=== PATIENT | female | born 1950 | race Caucasian/White ===

== ENCOUNTER 2016-05-06 09:56 | Inpatient (IN) | payer MEDICARE, OTHER ==
--- NOTE | ~2016-05-06 | DS ---
Discharge Summary [id number] [place]. [address] NAME: BRYANT VILLALPANDO : 54 STATUS : ADM IN PAT#: [id number] AGE: 65 ADM/REG DATE : 05/06/16 MR#: [id number] REPORT SERV DATE: 05/11/16 DICTATED BY: GINNA DORANTES DATE: 05/11/16 REPORT STATUS : Draft TRANSCRIBED BY: MODL DATE: 05/11/16 ADMISSION DATE: 05/06/2016 DISCHARGE DATE: 05/11/2016 DIAGNOSES ON ADMISSION: 1. 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 2. Hepatic encephalopathy. 3. History of spontaneous bacterial peritonitis in the past. 4. Abnormal liver enzymes, elevated bilirubin and transaminases secondary to end-stage liver disease. 5. Decreased level of consciousness. DIAGNOSES ON DISCHARGE: 1. End-stage liver disease seen by resource engineer, Dr. Ricardo Lisa. The patient refused liver transplantation. Hospice was recommended per Dr. Ricardo Lisa. 2. Hepatic encephalopathy secondary to end-stage liver disease, improved on lactulose, but patient repeatedly refused lactulose. 3. Status post paracenteses for ascites secondary to end-stage liver disease. 4. Severe coagulopathy secondary to end-stage liver disease. 5. No evidence of spontaneous bacterial peritonitis. 6. 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 CONSULTANTS ON THE CASE: Ricardo Lisa, resource engineer. HISTORY OF PRESENT ILLNESS: Per dictation of Yin Fischer on 05/06/2016. The patient is a very pleasant 65-year-old female, presented with altered mental status, decreased level of consciousness, and nonresponsiveness. She was started on lactulose. Her level of responsiveness improved. The consciousness came back to baseline. She had ascites and paracentesis was ordered, and she had 2 L of fluid removed. The cultures did not show any evidence of peritonitis. The patient was seen by resource engineer, Dr. Ricardo Lisa. The patient repeatedly refused liver transplantation. Her daughter was also at the bedside supporting her. Dr. Lisa recommended the patient to be discharged to hospice. We were waiting for hospice, and she was approved for hospice on the same day, but she needed placement and we were waiting for placement until she got approved to [facility] placement, but for the last three days, the patient was complaining of pain all over and she was requesting pain medications, so she was given low-dose morphine and her pain is currently controlled as well as the patient repeatedly refused lactulose. She understood that she may become unresponsive again, but she and her daughter both do not want her to take lactulose because patient does not like to have constant bowel movements and she does not want to take lactulose. She wants to be comfortable and it was explained to patient and her daughter that she may very soon without taking lactulose, and she may become completely unresponsive. She understands this and daughter as well understands, so she is approved to go to [facility] under hospice. Everything was discussed with hospice nurse. The patient will be discharged today. Discharge Summary [address] [place]. [address] NAME: BRYANT VILLALPANDO : 54 STATUS : ADM IN PAT#: [id number] AGE: 65 ADM/REG DATE : 05/06/16 MR#: [id number] REPORT SERV DATE: 05/11/16 DICTATED BY: GINNA DORANTES DATE: 05/11/16 REPORT STATUS : Draft TRANSCRIBED BY: CHRISTIANO DATE: 05/11/16 /CHRISTIANO Ginna Dorantes M.D. / [id number] CC: Yara Earl M.D.
--- NOTE | ~2016-05-06 | CN ---
Consultation Report [facility] [address] [place]. [address] NAME: BRYANT VILLALPANDO : 54 STATUS : ADM IN PAT#: [id number] AGE: 65 ADM/REG DATE : 05/06/16 MR#: [id number] REPORT SERV DATE: 05/08/16 DICTATED BY: DATE: REPORT STATUS : Draft TRANSCRIBED BY: MODL DATE: 05/08/16 NEUROLOGY CONSULTATION DATE OF CONSULTATION: REASON FOR CONSULT: Seizure. HISTORY OF PRESENT ILLNESS: This is an 88-year-old female with a history of nonalcoholic steatohepatitis, presented to [facility] secondary to encephalopathy. The patient on May 07, 2016, started developing jerking movement, especially worse with movement, as well as activity with the patient's symptom appeared to be improved with Ativan. The patient was noted to have no previous seizure history. The patient does have a history of cirrhosis with multiple ascites and refused the liver transplantation. As a result, the patient and family member have been talking with the hospice regarding hospice placement. The patient's family members wishes the patient to remain comfortable as the patient's main goal. No other complaints of fevers or other recent illness. PAST MEDICAL HISTORY: 1. Significant for cirrhosis secondary to nausea. 2. Hepatic encephalopathy. 3. History of bacterial peritonitis. 4. Diabetes. 5. Hypothyroidism. 6. Ascites with multiple paracentesis. SOCIAL HISTORY: Denies tobacco, alcohol, or recreational drug usage per records. FAMILY HISTORY: No family history of liver disease or reports of seizure noted. REVIEW OF SYSTEMS: Unable to be obtained secondary to the patient's mental status, but per the patient's family, was otherwise negative. MEDICATIONS: The patient's hospital medications consist of IV Ativan, as well as IV Keppra, lactulose, NovoLog, Protonix, and Rocephin. PHYSICAL EXAMINATION: VITAL SIGNS: At the time of evaluation, the patient's vital signs overnight T-max of 99.1, heart rates of 84-100, respiration of 14-20, and blood pressure of 132-164/60-82. GENERAL: The patient is well developed, well nourished, in no acute distress. The patient was able to follow some simple commands at the time of evaluation. She was noted to have some movement of bilateral upper and lower extremity at the time of evaluation with the patient noted to have distended abdomen, myoclonus jerk especially associated with movement, as well as stimulation, and was seen during the evaluation. Consultation Report [address] [place] [address] NAME: BRYANT VILLALPANDO : 54 STATUS : ADM IN PAT#: [id number] AGE: 65 ADM/REG DATE : 05/06/16 MR#: [id number] REPORT SERV DATE: 05/08/16 DICTATED BY: DATE: REPORT STATUS : Draft TRANSCRIBED BY: MODL DATE: 05/08/16 LABORATORY STUDIES: Demonstrated white blood cell count was 6.7, hemoglobin of 11.7, hematocrit of 33.9, and platelet count of 139. Chemistry panel: Sodium 138, potassium 4.0, chloride of 108, bicarb of 16, BUN of 34, creatinine 1.65, glucose 146, and calcium of 8.7. Serum ammonia level on May 07, 2016 was 33. IMPRESSION: 1. Myoclonus with the symptoms started on May 07, 2016, stable symptom with the patient's symptoms appear improved with Ativan. Discussed with the patient's family regarding the main goal of therapy, which is to keep the patient comfortable. The family is agreeable. If patient is drowsy or sedated secondary to medication side effect, as a result, we are recommending changing Keppra to 750 mg p.o. b.i.d. We will change Ativan to 1 mg IV q.6 hours as needed for jerking. 2. We will also start Klonopin 1 mg p.o. t.i.d. We will adjust doses as needed for jerking episode. RECOMMENDATIONS: 1. Ativan 1 mg IV q.6 hours as needed for myoclonus. 2. Change Keppra to 750 mg p.o. b.i.d. 3. We will start Klonopin 1 mg p.o. t.i.d. 4. We will titrate medication based on clinical response. [facility]/CHRISTIANO Jabari Gardner MD / [id number] CC: Yara Earl MD
--- NOTE | ~2016-05-06 | CN ---
Consultation Report [facility] [address] [place]. [address] NAME: BRYANT LANDA : 54 STATUS : ADM IN PAT#: [id number] AGE: 65 ADM/REG DATE : 05/06/16 MR#: [id number] REPORT SERV DATE: 05/07/16 DICTATED BY: RICARDO LISA DATE: 05/07/16 REPORT STATUS : Draft TRANSCRIBED BY: MODL DATE: 05/07/16 CONSULTATION DATE OF CONSULTATION: 05/07/2016 REASON: Cirrhosis of liver and complication. HISTORY: Ms. Landa is a 65-year-old pleasant lady from 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 She has been living alone there. She was offered liver transplant evaluation, but declined for personal reasons. The patient does not want liver transplant. Family brought her in [place] since daughter thinks that she cannot live alone, she is the only family member she has. She was in the hospital at the end of January for encephalopathy and ascites. Had the paracentesis done, treated with suspected bacterial peritonitis. Fluid analysis did not show any infection. WBC count was less than 200 at that time. She has been on lactulose, Xifaxan, and diuretics at home. Also at same time, she is on Ambien for sleep. Yesterday morning, daughter found her confused, she threw up a couple of times, was not able to talk to her, brought her to the hospital. In the ER, her ammonia level was 160. Lab work showed worsening liver functions with MELD score of 24. Since admission, she has received lactulose about 3 or 4 doses, had multiple bowel movements. The patient's mental status has improved. She is more alert, able to communicate and participate in the conversation this morning in the presence of her daughter. She has pain in the abdomen. Denies fever. Daughter is worried about management and prognosis and they are aware of her condition. They have been told by her senior technical recruiter that there is not much option left at this point, only option is liver transplant, but they have declined that and they are aware of the outcome and prognosis. Daughter says he has talked to the family members and they are talking about hospice and would like to see hospice service while they are here. PAST MEDICAL HISTORY: MOREL-related cirrhosis, hepatic encephalopathy, diabetes, hypothyroidism, ascites, cholelithiasis. SOCIAL HISTORY: Nondrinker and nonsmoker. Lives with her daughter, but prior to that has been living independently. SURGICAL HISTORY: Cervical and lumbar spine surgery, hysterectomy, and cholecystectomy. FAMILY HISTORY: No known liver disease. Consultation Report [address] [place]. [address] NAME: BRYANT LANDA : 54 STATUS : ADM IN PAT#: [id number] AGE: 65 ADM/REG DATE : 05/06/16 MR#: [id number] REPORT SERV DATE: 05/07/16 DICTATED BY: RICARDO LISA DATE: 05/07/16 REPORT STATUS : Draft TRANSCRIBED BY: CHRISTIANO DATE: 05/07/16 MEDICATIONS AT HOME: Zyrtec 10 mg once a day, vitamin D 50,000 units weekly, Nexium 40 mg once a day, Lasix 40 twice a day, insulin Lantus 20 units twice a day, lactulose 30 mL daily, levothyroxine 150 mcg daily, Nasonex nasal spray daily, Singulair 10 mg daily, Xifaxan 550 mg twice a day, Zoloft 50 mg daily, Aldactone 100 mg daily, Carafate 1 g with meals, iron tablet at bedtime, Ambien 10 mg at bedtime, Probiotic daily. ALLERGIES: PROMETHAZINE. REVIEW OF SYSTEMS: As per HPI. Detailed systems reviewed in detail. Significant positives are confusion, debilitation, weakness, decreased oral intake, nausea and vomiting, pain in abdomen, multiple bowel movements. Denies chest pain. Denies shortness of breath. Denies fever. No focal weakness. Other systems reviewed in detail and they were negative. PHYSICAL EXAMINATION: GENERAL: Well developed, well built, poorly nourished, alert, oriented, slow but able to answer questions directly. VITAL SIGNS: Blood pressure 129/79, pulse 97, respirations 16, temperature 97.7, pulse ox 93% on room air. HEENT: Eyes have pallor, also has icterus. Pupils equally round and reacting to light. NECK: Supple. No JVD. LUNGS: Bilateral decreased air entry. Bibasilar rales. HEART: S1 and S2 present. Tachycardia. No murmur appreciated. No gallop appreciated. ABDOMEN: Distended, soft. Moderate ascites. Umbilical hernia, noncomplicated, reducible. Bowel sounds normal. EXTREMITIES: Edema present. Normal peripheral pulses. No signs of DVT. Does not have varicose vein. NEURO: No focal neurological deficits. Cranial nerves are grossly intact. Speech normal. PSYCHIATRY: Alert and oriented to time and place. Sluggish memory. Comfortable, cooperative, able to answer direct questions. Workup in the hospital: CT of the abdomen, cirrhotic features, no liver mass (noncontrast study), moderate ascites. LAB WORK: WBC 13.3, hemoglobin 11.8, platelet 95. INR 1.7, ammonia 160, total bilirubin 6.8, AST 280, ALT 160. Sodium 135, potassium 4.8, chloride 105, bicarb 17, BUN 37, creatinine 1.37, glucose 125. IMPRESSION: 1. End-stage liver disease secondary to nonalcoholic steatohepatitis. MELD score is 24, high mortality in the next few months. Does not have any contraindication for liver transplant that I can find at this point, but patient and family does not wish to pursue liver transplant option. In that scenario, I expect her condition to get worse progressively from this point, not much option we have other than symptomatic Consultation Report [address] [place]. [address] NAME: BRYANT LANDA : 54 STATUS : ADM IN [facility]#: [id number] AGE: 65 ADM/REG DATE : 05/06/16 MR#: [id number] REPORT SERV DATE: 05/07/16 DICTATED BY: RICARDO LISA DATE: 05/07/16 REPORT STATUS : Draft TRANSCRIBED BY: MODL DATE: 05/07/16 treatment. I think hospice service needs to be considered with life expectancy less than six months. 2. Hepatic encephalopathy secondary to end-stage liver disease, worsening liver functions along with benzodiazepines. Some improvement since admission on increased dose of lactulose. Multiple bowel movements overnight. 3. Ascites, moderate. I do not think she needs paracentesis at this point for the symptomatic relief. 4. History of spontaneous bacterial peritonitis, but from the fluid analysis on January, total WBC was less than 200. No evidence of infection on that admission. 5. Debilitation, worsening. 6. The patient and daughter does not want liver transplant evaluation at this point. SUGGESTION: 1. Continue lactulose. 2. Supportive care. 3. Change cefotaxime three times a day to Rocephin once a day. 4. Continue diuretics. 5. Paracentesis has been ordered, but defer to primary team. 6. Recommend hospice service to see family and patient today in the room and arrange outpatient hospice at the desired location if okay and approved by primary team. Call me if you have any question or concern. I will see if needed again. Expect the patient to go home or prison under hospice service. CP/MODL Ricardo Lisa M.D. / [id number] CC: Yara Earl John Patrick
--- NOTE | ~2016-05-06 | HP ---
History And Physical [address] [place]. [address] NAME: BRYANT VILLALPANDO : 54 STATUS : ADM IN [facility]#: [id number] AGE: 65 ADM/REG DATE : 05/06/16 MR#: [id number] REPORT SERV DATE: 05/06/16 DICTATED BY: JENNI FISCHER DATE: 05/06/16 REPORT STATUS : Draft TRANSCRIBED BY: MODDakota DATE: 05/06/16 DATE OF ADMISSION: 05/06/2016 CHIEF COMPLAINT: Altered mental status. HISTORY OF PRESENT ILLNESS: The patient is a 65-year-old white female with history of MOREL and cirrhosis, well known to the Hospice Service at [facility], she was just there and discharged on 03/01/2016 after suffering spontaneous bacterial peritonitis. She has cirrhosis secondary to nonalcoholic steatohepatitis and has been encouraged to [facility], but has refused transplantation. Her daughter states she was not interested in transplantation. The patient on Wednesday started to be a bit confused. Wednesday, she was sleepy. Yesterday, she was more sleepy and confused. The daughter was not sure if she took her medications. She thinks she did, but she is not sure. She did not have any known fever. She did not have any blood in her stool that she knows of. Of course, the patient cannot answer any questions at this point. She is not able to verbalize. Her daughter reports she did have some emesis this morning, but it was noted to be food stuff and not containing any blood really. No other history is really available. PAST MEDICAL HISTORY: 1. Cirrhosis secondary to nonalcoholic steatohepatitis. 2. Hepatic encephalopathy. 3. Spontaneous bacterial peritonitis. 4. Nonalcoholic steatohepatitis. 5. Diabetes mellitus. 6. Hypothyroidism. 7. Insomnia. 8. Ascites with multiple paracentesis. 9. Gallstones with previous cholecystectomy. SOCIAL HISTORY: She is a nondrinker. Nonsmoker. She is currently living with a daughter, but mostly lives independently. PAST SURGICAL HISTORY: She has had cervical and lumbar spine surgery, hysterectomy, and cholecystectomy. FAMILY HISTORY: No liver disease. HOME MEDICATIONS: Reviewed and attached. REVIEW OF SYSTEMS: A 10-point review of systems obtained, all via the daughter. PHYSICAL EXAMINATION: VITAL SIGNS: Rectal temperature is 98.2, this was just taken in front of me, blood pressure is 168/71, pulse 80, respiratory rate 18, sats were 100%. GENERAL: Well-developed white female obviously with diminished level of consciousness, but History And Physical [address] [facility] [place]. [id number] NAME: BRYANT VILLALPANDO : 54 STATUS : ADM IN PAT#: [id number] AGE: 65 ADM/REG DATE : 05/06/16 MR#: [id number] REPORT SERV DATE: 05/06/16 DICTATED BY: JENNI FISCHER DATE: 05/06/16 REPORT STATUS : Draft TRANSCRIBED BY: MODDakota DATE: 05/06/16 does respond to verbal, but does not verbalize. She appears to move all four extremities. Cranial nerves 2 through 12 appear to be intact, but it is not fully evaluated. HEART: Regular rate and rhythm. LUNGS: Grossly clear. ABDOMEN: Soft. She does have ascites at present. It is not tense ascites. She does not appear to be tender, but again she is altered. EXTREMITIES: Warm and dry. SKIN: Intact. LABORATORY AND X-RAY: Chest x-ray shows no acute process. Urinalysis is essentially normal other than 9 whites, 2 reds, and trace ketones. Lactate is 2.2. CBC shows H and H of 11.5 and 33.6 with white count 13.3, and platelet count of 95. INR is 1.7. Basic metabolic panel, sodium 135, potassium 4.8, chloride 105, CO2 of 17, BUN and creatinine 31 and 1.37, glucose 105. LFTs: Total bilirubin 6.8, up from 3, alkaline phosphatase is 252, ALT is 107, AST is 240. Tylenol is less than 2. Salicylate is less than 1.7. Alcohol less than 10. Ammonia is 160. Urine drug screen was positive for barbiturates. EKG shows sinus rhythm. ASSESSMENT/PLAN: 1. Hepatic encephalopathy with ammonia of 160. This is our first and most pertinent problem. Currently, would like to lower her ammonia acutely. She is unable to take p.o. I am going to place her on lactulose enemas q.4 hours until she is awake enough to take p.o. We will monitor ammonia, likely recheck in the morning to see how she responds. She is currently maintaining her airway well and her vital signs are stable. We will also evaluate precipitating causes, see below. 2. History of spontaneous bacterial peritonitis with cirrhosis and ascites. We will rule out spontaneous bacterial peritonitis as a cause of her ongoing increased hepatic encephalopathy. We will order ultrasound with fluid studies with cultures included. I am going to cover her empirically with cephalosporin until I have this fluid studies back. 3. Abnormal LFTs consistent with possible hepatitis ongoing with associated cirrhosis, not sure what might have sparked the increase in her transaminases and bilirubin. She has had a cholecystectomy. She does have obvious ascites. She certainly could have spontaneous bacterial peritonitis. Her belly is soft. She does not have a fever. She has a mild white count. I think it is reasonable to consider CT scan of her abdomen and pelvis. Would first like to get a retention enema in her then will likely do some additional imaging of her belly. We will culture her blood, culture her urine and go from there. 4. Possible urinary tract infection. She only has 7 whites, I doubt this is related to urinary tract infection, but she is recovered nonetheless from spontaneous bacterial peritonitis. 5. History of cirrhosis secondary to nonalcoholic steatohepatitis, end-stage liver disease. The patient is refused transplantation. I discussed code status with daughter given the fact that she did not want more further aggressive treatment. She did report that her mother would not desire intubation-ventilation or cardiopulmonary resuscitation. We have made her a [id number]-[id number] today. These are recording with her previous wishes expressed to the daughter who is her next of kin. 6. Diabetes mellitus. I am going to hold her long-acting insulin. Her sugar is only 105 History And Physical [address] [address] NAME: BRYANT VILLALPANDO : 54 STATUS : ADM IN PAT#: [id number] AGE: 65 ADM/REG DATE : 05/06/16 MR#: [id number] REPORT SERV DATE: 05/06/16 DICTATED BY: JENNI FISCHER DATE: 05/06/16 REPORT STATUS : Draft TRANSCRIBED BY: MODDakota DATE: 05/06/16 when she has been taking. We will place her on level 1 sliding scale. 7. Deep venous thrombosis prophylaxis. Would avoid since she does have ongoing cirrhosis and abnormal coagulation studies. 8. Disposition pending above aforementioned plan and workup. JOSE/ASHLEYL Jenni Fischer M.D. / [id number] CC: Yara Wilder
[~2016-05-06 09:56] MED LIST: AMB10 PO; ASAB PO; BEN25 PO; CONSTULOSE PO; ESTRACE1 MG PO; HUMULIN R1 ML SC; IRON PO; KDUR10 PO; L40 PO; LANTUSCART SC; LEVAQUIN5T PO; LEVOTHYROXIN150 MCG PO; LIDODERM TOP; MCZ25 PO; MECLIZINE PO; NEXIUM40 PO; PROBIOTIC PO; SINGULAIR1 PO; SPIRO50 PO; SUCR PO; VITD PO; XIFAXAN550 MG PO; ZANAFLEX 4 MG TA4 MG PO; ZANAFLEX2 MG PO; ZOFRAN4 PO; ZOL50 PO; ZYRTEC ALLGY10 MG PO
[2016-05-06 11:40] LABS: INTERNATIONAL NORMAL RATI 1.7 UNITS (-); PARTIAL THROMBO TIME 28.5 SEC (22.5-37.2); PROTIME (NOT ORD) 19.4 SEC (12.0-14.5)
[2016-05-06 11:43] LABS: BASOPHILS 0.1 %; BASOPHILS ABSOLUTE 0.01 10/3/uL (0.0-0.16); EOSINOPHILS 0.1 %; EOSINOPHILS ABSOLUTE 0.01 10/3/uL (0.0-0.53); IMMATURE GRANULOCYTES 0.3 %; IMMATURE GRANULOCYTES ABSOLUTE 0.04 10/3/uL (0.0-0.11); LYMPHOCYTES 8.1 %; LYMPHOCYTES ABSOLUTE 1.08 10/3/uL (0.67-4.30); MEAN CORPUSCULAR HEMOGLOB 31.1 pg (26.0-34.0); MEAN CORPUSCULAR VOLUME 90.8 fL (80-100); MONOCYTES 7.8 %; MONOCYTES ABSOLUTE 1.03 10/3/uL (0.21-1.20); NEUTROPHILS 83.6 %; PLATELET COUNT 95 10/3/uL (150-400)
[2016-05-06 11:44] LABS: ER CBC TAT 0 Hrs 18 Mins; HEMATOCRIT 33.6 % (36.0-48.0); HEMOGLOBIN 11.5 g/dL (12.0-16.0); MANUAL DIFF NO %; MEAN CORPUS HGB CONC 34.2 g/dL (32.0-36.0); WHITE BLOOD CELLS 13.3 10/3/uL (4.5-10.5)
[2016-05-06 11:49] LABS: CALCIUM, SERUM 8.2 MG/DL (8.5-10.4); CHLORIDE, SERUM 105 MMOL/L (96-112); CREATININE 1.37 MG/DL (0.55-1.02); GFR AFRICAN AMERICAN 47 ML/MIN (>=60); GFR NON AFRICAN AMERICAN 41 ML/MIN (>=60); SGOT(AST) 240 U/L (5-40); SGPT(ALT) 107 U/L (5-65); SODIUM, SERUM 135 MMOL/L (135-148); TOTAL PROTEIN 7.2 G/DL (6.0-8.5); TROPONIN I <0.02 NG/ML (<0.05)
[2016-05-06 11:51] LABS: ASCORBIC ACID (UR NOT ORDER) NEG (NEG); BILIRUBIN, URINE NEGATIVE (NEG); ER URINALYSIS TAT 0 Hrs 11 Mins; KETONE, URINE TRACE MG/DL (NEG); LEUKOCYTE ESTERASE(NOT OR NEG (NEG); NITRITE (URINE) NEG (NEG); WBC (NOT ORDERED) (RFLEX) 9 (0-5)
[2016-05-06 11:51] LABS: A/G RATIO 0.4 (0.7-1.9); ALBUMIN 2.1 G/DL (3.5-5.0); ALKALINE PHOSPHATASE 252 U/L (45-117); BUN (BLOOD UREA NITROGEN) 31 MG/DL (6-23); CO2 (CARBON DIOXIDE) 17 MMOL/L (24-34); GLOBULIN 5.1 G/DL (2.5-4.1); GLUCOSE, SERUM 105 MG/DL (60-99); POTASSIUM, SERUM 4.8 MMOL/L (3.5-5.3); TOTAL BILIRUBIN 6.8 MG/DL (0-1.2)
[2016-05-06 11:55] LABS: LACTATE 2.2 MMOL/L (0.3-2.4)
[2016-05-06 11:56] LABS: ANISOCYTOSIS 1+ (5-10/OIF) (0-5/OIF); PLATELET ESTIMATE DEC (ADEQUATE)
[2016-05-06 11:57] LABS: ACETAMINOPHEN LEVEL (TYLENOL) < 2.0 MCG/ML (10.0-20.0); ALCOHOL < 10 MG/DL (0); RBC MORPHOLOGY NORM (NORMAL); SALICYLATE < 1.7 MG/DL (-)
[2016-05-06 12:09] LABS: AMPHETAMINES (NOT ORD) NEG (NEG); BARBITURATES (NOT ORDERED POS (NEG); BENZODIAZEPINES (NOT ORD) NEG (NEG); CANNABINOIDS (THC) NEG (NEG); COCAINE (NOT ORDERED) NEG (NEG); OPIATES NEG (NEG); PHENCYCLIDINE(PCP) NEG (NEG); TRICYCLICS NEG (NEG)
[2016-05-06] MEDS ORDERED: NASONEX NAS (12:45)
[2016-05-06] MEDS ORDERED: *UNABLE2 (12:48)
[2016-05-06 16:01] LABS: ALLENS TEST Pos; BE (BASE EXCESS) -0.8 MEQ/L (0 +/- 2.5); CARBOXYHEMOGLOBIN 1.4 % (0-3); HCO3 (ACTUAL BICARBONATE) 19.7 MEQ/L (23-27); HEMOBLOGIN CONTENT 12.6 G/DL (12-16); INSTRUMENT SERIAL # 8087; METHEMOGLOBIN 0.3 % (0-3); O2 CONTENT 17.3 VOL% (18-24); PCO2 (CO2 TENSION) 22 MMHG (35-45); PO2 (O2 TENSION) 105 MMHG (79-93); SAMPLE Arterial; pH 7.56 (7.37-7.43)
[2016-05-06 16:09] LABS: HEMATOCRIT 34.6 % (36.0-48.0); HEMOGLOBIN 11.5 g/dL (12.0-16.0)
[2016-05-06 17:01] LABS: PROCALCITONIN 0.24 ng/mL (<0.5)
[2016-05-06 22:09] LABS: HEMATOCRIT 34.3 % (36.0-48.0); HEMOGLOBIN 11.8 g/dL (12.0-16.0)
[2016-05-07 08:08] LABS: BASOPHILS 0.1 %; BASOPHILS ABSOLUTE 0.02 10/3/uL (0.0-0.16); EOSINOPHILS 0.4 %; EOSINOPHILS ABSOLUTE 0.07 10/3/uL (0.0-0.53); HEMATOCRIT 33.9 % (36.0-48.0); HEMOGLOBIN 11.7 g/dL (12.0-16.0); IMMATURE GRANULOCYTES 0.4 %; IMMATURE GRANULOCYTES ABSOLUTE 0.06 10/3/uL (0.0-0.11); LYMPHOCYTES 11.2 %; LYMPHOCYTES ABSOLUTE 1.87 10/3/uL (0.67-4.30); MEAN CORPUS HGB CONC 34.5 g/dL (32.0-36.0); MEAN CORPUSCULAR HEMOGLOB 32.3 pg (26.0-34.0); MEAN PLATELET VOLUME 12.1 fL (9.2-13.0); MONOCYTES 12.6 %; MONOCYTES ABSOLUTE 2.09 10/3/uL (0.21-1.20); NEUTROPHILS 75.3 %; NEUTROPHILS ABSOLUTE 12.54 10/3/uL (2.02-8.40); RBC DISTRIBUTION WIDTH 18.7 % (12.0-16.0); RED CELL COUNT 3.62 10/6/uL (4.0-5.6); WHITE BLOOD CELLS 16.7 10/3/uL (4.5-10.5)
[2016-05-07 08:09] LABS: MANUAL DIFF NO %; MEAN CORPUSCULAR VOLUME 93.6 fL (80-100); PLATELET COUNT 139 10/3/uL (150-400)
[2016-05-07 08:16] LABS: INTERNATIONAL NORMAL RATI 1.9 UNITS (-); PARTIAL THROMBO TIME 30.7 SEC (22.5-37.2); PROTIME (NOT ORD) 21.7 SEC (12.0-14.5)
[2016-05-07 08:34] LABS: A/G RATIO 0.4 (0.7-1.9); ALBUMIN 2.2 G/DL (3.5-5.0); ALKALINE PHOSPHATASE 248 U/L (45-117); BUN (BLOOD UREA NITROGEN) 34 MG/DL (6-23); CALCIUM, SERUM 8.7 MG/DL (8.5-10.4); CHLORIDE, SERUM 108 MMOL/L (96-112); CO2 (CARBON DIOXIDE) 16 MMOL/L (24-34); CREATININE 1.65 MG/DL (0.55-1.02); GFR AFRICAN AMERICAN 38 ML/MIN (>=60); GFR NON AFRICAN AMERICAN 33 ML/MIN (>=60); GLOBULIN 4.9 G/DL (2.5-4.1); GLUCOSE, SERUM 146 MG/DL (60-99); SGOT(AST) 422 U/L (5-40); SGPT(ALT) 136 U/L (5-65); SODIUM, SERUM 138 MMOL/L (135-148); TOTAL BILIRUBIN 8.5 MG/DL (0-1.2); TOTAL PROTEIN 7.1 G/DL (6.0-8.5)
[2016-05-07 10:01] LABS: HEPATITIS B SURFACE ANTIGEN NON-REACTIVE (NON-REACT)
[2016-05-07 10:12] LABS: HEPATITIS C ANTIBODY NON-REACTIVE (NON-REACT)
[2016-05-07 10:13] LABS: HEPATITIS B CORE AB IGM NON-REACTIVE (NON-REAC)
[2016-05-07 10:14] LABS: HEP A ANTIBODY IGM NON-REACTIVE (NON-REACT)
[2016-05-07 13:14] LABS: BF ALBUMIN 0.2 G/DL; GLUCOSE BODY FL (NOT ORD) 151 MG/DL; LDH BODY FLUID (NOT ORD) 48 U/L
[2016-05-07 13:29] LABS: BF TOTAL CELL CT (NOT ORD 98 /MM3; BODY FLUID RBC (NOT ORD) 446 /MM3
[2016-05-07 13:49] LABS: BD FL LYMPH (NOT ORD) 32 %; BD FL SOURCE (NOT ORD) ASCITES; BF BASO (NOT OF) 0 %; BF LARGE MONONUCLEAR 66 %; BODY FLUID EOS (NOT ORD) 0 %; BODY FLUID SEG (NOT ORD) 2 %
[2016-05-07 16:03] LABS: HEMATOCRIT 33.8 % (36.0-48.0); HEMOGLOBIN 11.6 g/dL (12.0-16.0)
[2016-05-07 23:12] LABS: HEMATOCRIT 31.7 % (36.0-48.0); HEMOGLOBIN 10.7 g/dL (12.0-16.0)
[2016-05-08 09:27] LABS: BASOPHILS 0.2 %; BASOPHILS ABSOLUTE 0.03 10/3/uL (0.0-0.16); EOSINOPHILS 0.8 %; EOSINOPHILS ABSOLUTE 0.11 10/3/uL (0.0-0.53); HEMATOCRIT 34.6 % (36.0-48.0); HEMOGLOBIN 11.6 g/dL (12.0-16.0); IMMATURE GRANULOCYTES 0.1 %; IMMATURE GRANULOCYTES ABSOLUTE 0.01 10/3/uL (0.0-0.11); LYMPHOCYTES 19.4 %; LYMPHOCYTES ABSOLUTE 2.57 10/3/uL (0.67-4.30); MEAN CORPUS HGB CONC 33.5 g/dL (32.0-36.0); MEAN CORPUSCULAR HEMOGLOB 31.8 pg (26.0-34.0); MEAN CORPUSCULAR VOLUME 94.8 fL (80-100); MEAN PLATELET VOLUME 12.4 fL (9.2-13.0); MONOCYTES 8.9 %; MONOCYTES ABSOLUTE 1.18 10/3/uL (0.21-1.20); NEUTROPHILS 70.6 %; NEUTROPHILS ABSOLUTE 9.32 10/3/uL (2.02-8.40); PLATELET COUNT 106 10/3/uL (150-400); RBC DISTRIBUTION WIDTH 18.4 % (12.0-16.0); RED CELL COUNT 3.65 10/6/uL (4.0-5.6); WHITE BLOOD CELLS 13.2 10/3/uL (4.5-10.5)
[2016-05-08 09:28] LABS: MANUAL DIFF NO %
[2016-05-08 09:35] LABS: INTERNATIONAL NORMAL RATI 1.9 UNITS (-); PROTIME (NOT ORD) 21.8 SEC (12.0-14.5)
[2016-05-08 09:44] LABS: BUN (BLOOD UREA NITROGEN) 29 MG/DL (6-23); CALCIUM, SERUM 8.7 MG/DL (8.5-10.4); CHLORIDE, SERUM 106 MMOL/L (96-112); CO2 (CARBON DIOXIDE) 20 MMOL/L (24-34); CREATININE 1.28 MG/DL (0.55-1.02); GFR AFRICAN AMERICAN 52 ML/MIN (>=60); GFR NON AFRICAN AMERICAN 44 ML/MIN (>=60); GLUCOSE, SERUM 99 MG/DL (60-99); POTASSIUM, SERUM 4.1 MMOL/L (3.5-5.3); SODIUM, SERUM 137 MMOL/L (135-148)
[2016-05-09 16:00] LABS: HEMATOCRIT 32.8 % (36.0-48.0); HEMOGLOBIN 11.2 g/dL (12.0-16.0)
[2016-05-09 22:13] LABS: HEMATOCRIT 32.5 % (36.0-48.0); HEMOGLOBIN 11.3 g/dL (12.0-16.0)
[2016-05-10 09:32] LABS: HEMATOCRIT 37.4 % (36.0-48.0); HEMOGLOBIN 11.9 g/dL (12.0-16.0)
[2016-05-10 12:07] LABS: HEMATOCRIT 36.4 % (36.0-48.0); HEMOGLOBIN 12.4 g/dL (12.0-16.0)
[2016-05-10 17:12] LABS: HEMATOCRIT 33.7 % (36.0-48.0); HEMOGLOBIN 11.7 g/dL (12.0-16.0)
[2016-05-10 22:26] LABS: HEMATOCRIT 34.6 % (36.0-48.0)
== END 2016-05-11 14:45 | disposition left against medical advice (07) | DRG 442 ==
LOC: ER 09:56 → 4SO 14:23
PROVIDERS: Hospitalist; Internal Medicine; Nurse Practitioner
PROC: 0W9G3ZX Drainage of Peritoneal Cavity, Percutaneous Approach, Diagnostic (ICD-10-PCS; principal; 2016-05-07)
DX: K72.10 Chronic hepatic failure without coma (principal); R18.8 Other ascites; K75.81 Nonalcoholic steatohepatitis (NASH); K74.69 Other cirrhosis of liver; T47.3X6A Underdosing of saline and osmotic laxatives, initial encounter; Z91.128 Patient's intentional underdosing of medication regimen for other reason; Y92.009 Unspecified place in unspecified non-institutional (private) residence as the place of occurrence of the external cause; G25.3 Myoclonus; Z51.5 Encounter for palliative care; E11.9 Type 2 diabetes mellitus without complications; E03.9 Hypothyroidism, unspecified; K80.20 Calculus of gallbladder without cholecystitis without obstruction; Z79.4 Long term (current) use of insulin; R53.81 Other malaise; Z66 Do not resuscitate
CPT/HCPCS: 36415; 36600; 49083; 70450; 71010; 74176; 80048; 80053; 80074; 80305; 80307; 81001; 82042; 82140; 82805; 82945; 82962; 83605; 83615; 83735; 84145; 84484; 85014; 85018; 85025; 85610; 85730; 86850; 86900; 86901; 86920; 87040; 87070; 87205; 89051; 93005; 99285; A9270-GY; C9113; J1953; J2405